=== PATIENT | male | born 1970 | race Caucasian/White ===

== ENCOUNTER 2018-12-07 10:06 | Day surgery (SDC) | payer BC ==
[2018-12-07] MEDS ORDERED: MIDAZOLAM HCL 2MG/2ML VIAL IV ONE (10:07)
[2018-12-07] MEDS ORDERED: DEXAMETHASONE 4 MG/ML 1ML VIAL IVP ONE (10:07)
[2018-12-07] MEDS ORDERED: ONDANSETRON HCL IV 4 MG/2 ML VIAL IVP ONE (10:07)
[2018-12-07] MEDS ORDERED: FENTANYL PF 100MCG/2ML VIAL IV ONE (10:07)
[2018-12-07] MEDS ORDERED: SEVOFLURANE 250 ML INH ONE (10:07)
[2018-12-07] MEDS ORDERED: KETOROLAC 30 MG/ML VIAL IVP ONE (10:07)
[2018-12-07] MEDS ORDERED: LIDOCAINE 2% MDV (20MG/ML) 20ML VIAL IV ONE (10:07)
[2018-12-07] MEDS ORDERED: ACETAMINOPHEN 1,000 MG/100 ML BTL IVPB ONE (10:58)
[2018-12-07] MEDS ORDERED: CEFAZOLIN 2 Gram 2 GM/50 ML BAG IVPB SCH (11:00)
[2018-12-07] MEDS ORDERED: METHYLPREDNISOLONE 80MG/VIAL IM ONE (12:39)
[2018-12-07] MEDS ORDERED: BUPIVACAINE 0.5% W/EPI MPF 30 ML VIAL SQ ONE (12:40)
[2018-12-07] MEDS ORDERED: ACETAMINOPHEN W/ CODEINE 300MG/30MG TABLET PO PRN (13:51)
--- NOTE | 2018-12-11 10:44 | Operative Note ---
DATE OF SURGERY: 12/07/2018. PREOPERATIVE DIAGNOSES: 1. RIGHT KNEE ARTHROSIS. 2. MENISCUS TEAR. POSTOPERATIVE DIAGNOSES: 1. RIGHT KNEE ARTHROSIS. 2. MENISCUS TEAR. PROCEDURES: 1. DIAGNOSTIC LAPAROSCOPY. 2. ARTHROSCOPIC PARTIAL MIDDLE AND POSTERIOR HORN MEDIAL MENISCECTOMY. 3. ARTHROSCOPIC DEBRIDEMENT AND CHONDROPLASTY OF THE MEDIAL FEMORAL CONDYLE AND MEDIAL TIBIAL PLATEAU. SURGEON: Jonel Ruby M.D. ANESTHESIA: Laryngeal mask airway anesthesia. Tank Herrmann CRNA COMPLICATIONS: None. BLOOD LOSS: Minimal. 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 INDICATIONS FOR OPERATION: This is a 48-year-old male who has had persistent pain and dysfunction in the medial aspect of his knees for years. This is almost [id number] in the right knee and getting worse on the left. He is too young for knee replacement. He has failed all nonoperative treatment including anti-inflammatory injections and wishes to proceed with arthroscopic surgery. I explained all of the risks and benefits thoroughly in detail for diagnosis and procedures including but not limited to infection, nerve injury, vessel injury, persistent numbness and tingling in his knee, and the fact that he has arthrosis in his knee and this procedure will not cure that condition and he could require further procedures. All of his questions were answered, the treatment and course were outlined, and he agreed to proceed. PROCEDURE: The patient was brought to the operating room and was placed in the supine position and prepared for surgery. Laryngeal mask airway anesthesia was induced and the right lower extremity and knee were prepped and draped in sterile fashion. The knee was reprepped with ChloraPrep after it was draped. Intraoperative time-out was performed. Next preoperative examination revealed full knee range of motion. There is some crepitus in the medial compartment with Bing's test and varus-loaded range of motion. Katia's and anterior and posterior drawer are normal. Next the superolateral inferior port was established and the inferomedial lateral portal was established. Diagnostic arthroscopy was performed. The suprapatellar pouch was significantly inflamed with a significant amount of synovitis there. We debrided that with a shaver lightly. The medial gutter was normal. The medial compartment revealed significant disease. He had grade 4 chondromalacia basically throughout the entire medial compartment of his knee and a complex, shredded tear of the entire middle and posterior horns of the medial meniscus. Used a combination of shaver and basket biter and trimmed back the meniscus. Basically I removed almost the entire middle and posterior horns, about 80 to 90 percent, to a smooth, stable surface contour with the anterior horn. Removed any loose cartilage fragments from the articular surfaces as well. Again there was significant disease here. The intracondylar notch and the remainder of the knee was normal. Intracondylar notch, anterior cruciate ligament, and posterior cruciate ligament were intact. The lateral compartment was completely normal. The cartilage was normal and the meniscus was normal. The lateral gutter was normal. The patellofemoral compartment was normal as well. This completed the procedures. The scope and equipment was removed. Used a bolus of 0.5% Marcaine with epinephrine, 80 mg of Depo Medrol, and Exparel. Sterile dressing was applied as was an Arun wrap. The patient tolerated the procedures well with no intraoperative complications. Sponge, needle, and blade counts were correct. He was sent to Recovery stable and neurovascularly intact. He will be discharged as an outpatient, and he will have a [facility] Therapy nurse. He will follow up in two weeks. cc: Dr. Óscar Morales, [place], [place] JOB NUMBER: [id number] MTDD
== END 2018-12-07 14:06 | disposition home or self-care (01) ==
LOC: SUR 10:06
PROVIDERS: ATTEND Orthopaedic Surgery
DX: S83.231A Complex tear of medial meniscus, current injury, right knee, initial encounter (principal); M17.11 Unilateral primary osteoarthritis, right knee; F12.90 Cannabis use, unspecified, uncomplicated; K21.9 Gastro-esophageal reflux disease without esophagitis
CPT/HCPCS: 93005; J1040; J1885; J2405

== ENCOUNTER 2019-01-18 11:25 | Day surgery (SDC) | payer BC ==
[~2019-01-18 11:25] MED LIST: ACETAMINOPHEN 1,000 MG/100 ML BTL IVPB ONE; CEFAZOLIN 2 Gram 2 GM/50 ML BAG IVPB ONE
[2019-01-18] MEDS ORDERED: DEXAMETHASONE 4 MG/ML 1ML VIAL IVP ONE (11:26)
[2019-01-18] MEDS ORDERED: MIDAZOLAM HCL 2MG/2ML VIAL IV ONE (11:26)
[2019-01-18] MEDS ORDERED: FENTANYL PF 100MCG/2ML VIAL IV ONE (11:26)
[2019-01-18] MEDS ORDERED: ONDANSETRON HCL IV 4 MG/2 ML VIAL IVP ONE (11:26)
[2019-01-18] MEDS ORDERED: KETOROLAC 30 MG/ML VIAL IVP ONE (11:26)
[2019-01-18] MEDS ORDERED: LIDOCAINE 2% MDV (20MG/ML) 20ML VIAL IV ONE (11:26)
[2019-01-18] MEDS ORDERED: PROPOFOL 10 MG/ML VIAL IV ONE (11:26)
[2019-01-18] MEDS ORDERED: DESFLURANE 240 ML BTL INH ONE (11:26)
[2019-01-18] MEDS ORDERED: RINGERS SOLUTION,LACTATED 1,000 ML IV ONE (12:35)
[2019-01-18] MEDS ORDERED: BUPIVACAINE 0.5% W/EPI MPF 30 ML VIAL SQ ONE (15:20)
[2019-01-18] MEDS ORDERED: METHYLPREDNISOLONE 80MG/VIAL IM ONE (15:20)
--- NOTE | 2019-01-22 09:38 | Operative Note ---
PREOPERATIVE DIAGNOSIS: Left knee arthrosis and meniscus tear. POSTOPERATIVE DIAGNOSIS: Left knee arthrosis and meniscus tear. OPERATION: 1. Diagnostic arthroscopy. 2. Arthroscopic partial middle and posterior horns medial meniscectomy. 3. Arthroscopic debridement chondroplasty of medial femoral condyle and tibial plateau. SURGEON: Jonel Ruby M.D. ANESTHESIA: General LMA. ANESTHESIA PROVIDER: VAMSHI Walker CRNA COMPLICATIONS: None. ESTIMATED BLOOD LOSS: Minimal. OPERATIVE FINDINGS: Grade 4 chondromalacia basically throughout the medial compartments, some loose cartilage flaps and debris, chunks of cartilage floating around or partially detached. We debrided those with a shaver to as smooth a surface as possible. We removed about 50 to 60% of the width of the middle horn and posterior horn of the meniscus and used a shaver to smooth that off. The remainder of the knee was basically normal. The patellofemoral, cartilage, and joint was normal and the lateral compartment was normal and possibly the patient may be a good candidate for a medial compartment arthroplasty in the future if his symptoms persist. INDICATIONS FOR OPERATION: A 48-year-old male who has had persistent pain and dysfunction of his knee for several years. He failed nonoperative treatment. He had fusion, preoperatively he has failed nontreatment, injections, anti- inflammatories, and scheduled for arthroscopic surgery. He had a predominantly isolated medial compartment arthrosis on x-ray, almost [id number]. I explained to him our risks and benefits in detail for the diagnosis and procedures, and the fact that this procedure will not cure this condition, it could require further procedure such as even knee replacement, also a nerve injury, vessel injury, infection, blood clot, need for other procedures and all of his questions were answered. The remainder of the course was outlined and he agreed to proceed. PROCEDURE: The patient was brought into the OR and placed in the supine position, prepped for surgery. A sterile leg is applied. His left lower extremity and knee are prepped in sterile fashion. His left knee was prepped again with Chloraprep after it was draped. Intraoperative timeout was performed. Next, a superior lateral and inferior portal was established, an inferior and medial lateral portal were established, diagnostic arthroscopy was performed. The suprapatellar pouch had a significant amount of inflammation. The medial gutter again same amount of significant inflammation, no loose bodies or debris here. MTDD
== END 2019-01-18 16:15 | disposition home or self-care (01) ==
LOC: SUR 11:25
PROVIDERS: ATTEND Orthopaedic Surgery
DX: S83.242A Other tear of medial meniscus, current injury, left knee, initial encounter (principal); M17.12 Unilateral primary osteoarthritis, left knee; K21.9 Gastro-esophageal reflux disease without esophagitis
CPT/HCPCS: 29881; 01400; J1885; J2405; J3010; J0690; J1040; J7120